=== PATIENT | female | born 1965 | race Caucasian/White ===

== ENCOUNTER 2018-06-24 13:06 | Emergency (ER) | payer OTHER, SELFPAY ==
[2018-06-24 13:07] VITALS: BP 119/71; PULSE 75; RESP 18; TEMP 36.6; O2SAT 99; BMI 35.4
[2018-06-24 13:26] VITALS: BP 125/80; PULSE 80; RESP 14; O2SAT 98
[2018-06-24] MEDS: Triamcinolone Acetonide 40 MG/ML Vial IM (13:57)
[2018-06-24 14:01] VITALS: BP 120/70; PULSE 75; RESP 14; O2SAT 99
[2018-06-24 14:06] LABS: Bedside Glucose 77 mg/dL (70-110)
--- NOTE | 2018-06-24 14:11 | ED.DCSUM_ITS ---
- ER Visit Summary Date of Service: 06/24/18 Chief Complaint: [Sinus infection] History of Present Illness: The patient is a 52 F [who presents the emergency department with a sinus infection. She has been having a headache and ear pressure for the last 2 weeks. She developed facial pain white thick nasal drainage. She was seen in urgent care 2 days ago and given Cipro and eardrops for an ear infection in the right and amoxicillin for a sinus infection but feels worse. She is borderline diabetic and says is poorly controlled.] Physical Examination: [] Vitals reviewed WN WD NAD PERRL EOMI MMM Tenderness to palpation over the bilateral maxillary sinuses, swelling and erythema of the nasal turbinates bilaterally Erythema and dullness of the right TM there is partial occlusion of the TM with soft cerumen NECK supple and nontender, no masses RRR no murmur rub or gallop, no peripheral edema, symmetric radial pulses CTAB no respiratory distress ABDOMEN is soft and nontender, normal bowel sounds, no distension, no rebound or guarding SKIN is warm and dry no rashes Alert and Oriented x3, CN II-XII in tact, no motor or sensory deficits, gait normal No lymphadenopathy Test Results: [] Emergency Department Course and Treatment: [Blood sugar was checked and was 77. Patient was given a shot of Kenalog. She will be sent home with Zyrtec Flonase and doxycycline. She will stop the Cipro but then you the amoxicillin.] Treatment Plan: [] Disposition: [Discharge] Impression: [sinus infection] This note was generated with [employer] dictation software. It may contain incorrect words, spelling, and punctuation that were not noted in review of the chart prior to signing ED Disposition - Plan for ED Patient: Chief Complaint: General Illness Referrals: Jm Johansen DO [Primary Care Provider] -
--- NOTE | 2018-06-24 14:13 | DCINST.ED_ITS ---
ED Disposition - Plan for ED Patient: Chief Complaint: General Illness Instructions: Acute Sinusitis Prescriptions: Cetirizine HCl [Zyrtec] 10 mg PO DAILY #14 tablet Doxycycline Hyclate 100 mg PO BID #20 tablet Fluticasone 0.05% [Flonase Nasal [place]] 1 spray NASAL BID #1 bottle Referrals: Jm Johansen DO [Primary Care Provider] - 3-5 Days
== END 2018-06-24 14:18 | disposition home or self-care (01) ==
LOC: ED 13:53
PROVIDERS: Emergency Provider Emergency Medicine; Family Provider Student in an Organized Health Care Education/Training Program; PCP Student in an Organized Health Care Education/Training Program
DX: J32.9 Chronic sinusitis, unspecified (principal); I10 Essential (primary) hypertension; R73.03 Prediabetes; Z86.39 Personal history of other endocrine, nutritional and metabolic disease; Z87.891 Personal history of nicotine dependence; Z79.899 Other long term (current) drug therapy
CPT/HCPCS: 82962; 96372; 99283

== ENCOUNTER 2023-04-18 17:54 | Inpatient (IN) | payer OTHER, SELFPAY ==
[2023-04-18 17:54] VITALS: BP 108/66; PULSE 76; RESP 17; TEMP 37.1; O2SAT 97; BMI 30.4
--- NOTE | 2023-04-18 18:20 | RAD_ITS ---
STUDY: X-RAY - RIGHT ANKLE REASON FOR EXAM: Female, 57 years old. Pain and deformity. TECHNIQUE: 2 view(s) of the ankle. COMPARISON: None. FINDINGS: Comminuted fracture of the distal fibula with dorsal angulation of the distal fracture fragment. There is fracture of the medial tibia and plafond which is displaced posteriorly to the remainder of the tibia. There is dorsal dislocation of the ankle. Normal visualized talus and calcaneus. The visualized subtalar, talonavicular, calcaneocuboid and tarsal articulations are normal. The soft tissue structures are unremarkable. RAD/Ankle 2 Views IMPRESSION: Fracture dislocation of the right ankle. Electronically Signed: Trino Salazar DO at 18:41 EDT ,
--- NOTE | 2023-04-18 18:20 | RAD_ITS ---
STUDY: X-RAY - RIGHT TIBIA AND FIBULA REASON FOR EXAM: Female, 57 years old. Trauma. Pain and deformity. TECHNIQUE: AP and lateral view(s) of the tibia and fibula were obtained. COMPARISON: Right ankle, April 18, 2022. FINDINGS: There is a fracture of the medial aspect of the distal tibia with posterior displacement. There is a comminuted fracture of the distal radial diametaphysis with dorsal angulation and associated posterior dislocation of the ankle. Additionally there is a minimally displaced fracture of the proximal fibular diaphysis. The knee appears intact. The soft tissue structures are unremarkable. RAD/Tibia & Fibula 2 Views IMPRESSION: 1. Fracture dislocation of the ankle. 2. Minimally displaced fracture of the proximal fibular shaft. Electronically Signed: Trino Salazar DO at 18:42 EDT ,
[2023-04-18] MEDS: HYDROmorphone 1 MG/ML Syringe IV (18:26)
[2023-04-18] MEDS: Ondansetron 4 MG/2 ML Vial IV (18:26)
--- NOTE | 2023-04-18 19:20 | RAD_ITS ---
STUDY: X-RAY - RIGHT ANKLE REASON FOR EXAM: Female, 57 years old. Reduction. TECHNIQUE: AP and lateral view(s) of the ankle. COMPARISON: Right ankle, April 18, 2023 (1817 hours). FINDINGS: Visualization is limited due to a surrounding semiopaque splint. There is protestant of the ankle when compared to the prior study. The tibial fracture appears in normal alignment. There is improved alignment of the distal fibular fracture. RAD/Ankle min 3 Views IMPRESSION: Successful reduction of the right ankle fracture/dislocation with semiopaque ligament. Electronically Signed: Trino Salazar DO at 19:49 EDT ,
--- NOTE | 2023-04-18 19:50 | EX.ED.DYSGE1 ---
HPI <KAI Martinez - Last Filed: 04/18/23 20:16> History of Present Illness Chief Complaint: Lower Extremity Injury Narrative Narrative: 57-year-old female with history of anxiety, depression, high blood pressure, diabetes presents to the emergency department for injury to the right ankle, right lower extremity after jumping off of a truck bed. Patient came in with deformity by EMS. Patient had extreme pain to the ankle with posterior dislocation. She denies any head or neck injury. Patient is present with her . PFS <KAI Martinez - Last Filed: 04/18/23 20:16> [facility] Medical History (Updated 04/19/23 @ 00:[address] Mehul Ceballos DO) Cataract Diabetes Former tobacco use Hyperlipidemia Hypertension Obesity PTSD (post-traumatic stress disorder) Tachyarrhythmia Home Medications atenolol 50 mg tablet 50 mg PO DAILY blood pressure 12/20/15 [History Last Taken 04/18/23] ergocalciferol (vitamin D2) 1,250 mcg (50,000 unit) capsule (Vitamin D2) 50,000 unit PO SA supplement 12/20/15 [History Last Taken 04/17/23] potassium chloride 20 mEq tablet,extended release(part/cryst) (Klor-Con M) 20 meq PO BID supplement 12/20/15 [History Last Taken 04/18/23] venlafaxine 150 mg capsule,extended release 24 hr 225 mg PO DAILY depression 12/20/15 [History Last Taken 04/18/23] fluticasone propionate 50 mcg/actuation nasal spray,suspension 1 spray BID ##1 06/24/18 [Rx Last Taken 04/18/23] aripiprazole 2 mg tablet 2 mg PO DAILY mood 04/18/23 [History Last Taken 04/18/23] citalopram 20 mg tablet 20 mg PO QHS depression 04/18/23 [History Last Taken 04/17/23] diazepam 10 mg tablet 10 mg PO DAILY PTSD 04/18/23 [History Last Taken 04/18/23] furosemide 20 mg tablet 20 mg PO BID diuretic 04/18/23 [History Last Taken 04/18/23] gabapentin 300 mg capsule 300 mg PO QHS arthritis 04/18/23 [History Last Taken 04/17/23] metformin 500 mg tablet 500 mg PO BID diabetes 04/18/23 [History Last Taken 04/18/23] Allergy/AdvReac Type Severity Reaction Status Date / Time Sulfa (Sulfonamide Allergy Unknown Verified 04/18/23 17:55 Antibiotics) Family History (Updated 04/18/23 @ 23:[address] Odalys Page MD) Mother Diabetes Hypertension Sister Diabetes Surgical History (Updated 04/18/23 @ 23:[address] Odalys Page MD) History of History of cardiac radiofrequency ablation History of cholecystectomy History of right salpingo-oophorectomy S/P cataract extraction Social History (Updated 04/18/23 @ 23:[address] Odalys Page MD) household members: spouse Smoking Status: Former smoker how long ago did patient quit smoking: Quit 1991, smoked 2 ppd since teen until quit. alcohol intake: never substance use type: does not use ROS <KAI Martinez - Last Filed: 04/18/23 20:16> ROS ED ROS Narrative Constitutional: Negative for fever, chills, weight loss, weakness Eyes: Negative for vision loss, vision change, double vision ENT: Negative for any sore throat, ear pain, congestion Cardiovascular: Negative for any chest pain, tightness, palpitations Respiratory: Negative for any cough, sputum production, hemoptysis, dyspnea, dyspnea on exertion, orthopnea Gastrointestinal: Negative for any abdominal pain, nausea, vomiting, diarrhea, constipation, blood in stool, blood in vomit : Negative for any urinary frequency, dysuria, retention, blood in urine Muscle skeletal: Negative for any muscle joint pain, stiffness, myalgias, arthralgias, neck pain, back pain. Positive right lower ankle pain, right ankle deformity Neurological: Negative for any headache, syncope, numbness or tingling, dizziness Skin: Negative for any rashes, lumps, itching, abrasions, lacerations Psychiatric: Negative for any depression, anxiety, stress, suicidal ideation, homicidal ideation Hematologic: Negative for any easy bruising, excessive bruising, easy bleeding Allergies: Negative for any eczema, hives, rash EXAM <KAI Martinez - Last Filed: 04/18/23 20:16> Physical Exam Narrative Exam Narrative: Vital signs reviewed. HEET: Head normocephalic atraumatic, TMs clear bilaterally. Posterior pharynx is clear, moist mucous membranes. Nares clear bilaterally. Pupils are equal round reactive to light Neck: Supple with no lymphadenopathy or tenderness. No signs of meningismus, negative jolt sign. Cardiac: Regular rate and rhythm no murmurs gallops or rubs, equal peripheral pulses bilaterally. Respiratory: Lungs clear to auscultation bilaterally. No chest tenderness. Abdomen: Soft, nontender, nondistended. No abdominal bruit or pulsatile masses. No hepatosplenomegaly Extremities: Patient has obvious posterior deformity to the right ankle, patient does have a pulse felt with Doppler. Upon initial x-rays, the attending and I were able to reduce this and placed in a short posterior splint with a sugar-tong. Patient had pain medicine prior, as well as after. Patient's neurovascular intact. Neuro: Cranial nerves II through XII intact, no focal neurological deficits. Skin: Clean dry and intact with no rash, purpura, petechiae, vesicles or pustules. Backs/flank: No CVA tenderness, no midline spinal tenderness, no deformity. Psych: Normal mood and affect. No SI, HI or acute psychosis. Const Vital Signs: 04/18/23 17:54 04/18/23 20:25 04/18/23 20:28 Temperature 98.7 F 97.9 F Temperature Source Temporal Oral Pulse Rate 76 76 76 Respiratory Rate 17 16 15 Blood Pressure 108/66 99/61 101/61 Blood Pressure Mean 80 73 74 Pulse Ox 97 93 91 Oxygen Delivery Method Room Air Room Air Room Air Positive well nourished and well developed General Appearance ED: well developed <Dr. Mehul Ceballos DO - Last Filed: 04/19/23 00:53> Physical Exam Const Vital Signs: 04/18/23 17:54 04/18/23 20:25 04/18/23 20:28 Temperature 98.7 F 97.9 F Temperature Source Temporal Oral Pulse Rate 76 76 76 Respiratory Rate 17 16 15 Blood Pressure 108/66 99/61 101/61 Blood Pressure Mean 80 73 74 Pulse Ox 97 93 91 Oxygen Delivery Method Room Air Room Air Room Air MDM <KAI Martinez - Last Filed: 04/18/23 20:16> MDM Lab Data Labs: Laboratory Results - last 24 hr 04/18/23 04/18/23 04/18/23 20:00 20:00 20:00 WBC 13.7 H RBC 3.93 L Hgb 11.5 L Hct 36.9 L MCV 93.9 MCH 29.3 MCHC 31.2 L RDW Std Deviation 45.8 H RDW Coeff of Kristi 13.2 Plt Count 359 MPV 11.1 Immature Gran % (Auto) 0.400 Neut % (Auto) 74.7 H Lymph % (Auto) 16.7 L Dade % (Auto) 6.4 Eos % (Auto) 1.2 Baso % (Auto) 0.6 Absolute Neuts (auto) 10.2 H Absolute Lymphs (auto) 2.28 Nucleated RBC % 0 PT 13.0 INR 1.0 APTT 27.9 Sodium 141 Potassium 3.7 Chloride 103 Carbon Dioxide 31.0 Anion Gap 7 BUN 12 Creatinine 0.98 Estim Creat Clear Calc 51.76 Est GFR (MDRD) Af Amer 75 Est GFR (MDRD) Non-Af 62 BUN/Creatinine Ratio 12.3 Glucose 106 Hemoglobin A1c Calcium 9.3 Phosphorus Magnesium Blood Type Antibody Screen 04/18/23 04/18/23 04/18/23 20:00 20:00 20:00 WBC RBC Hgb Hct MCV MCH MCHC RDW Std Deviation RDW Coeff of Kristi Plt Count MPV Immature Gran % (Auto) Neut % (Auto) Lymph % (Auto) Dade % (Auto) Eos % (Auto) Baso % (Auto) Absolute Neuts (auto) Absolute Lymphs (auto) Nucleated RBC % PT INR APTT Sodium Potassium Chloride Carbon Dioxide Anion Gap BUN Creatinine Estim Creat Clear Calc Est GFR (MDRD) Af Amer Est GFR (MDRD) Non-Af BUN/Creatinine Ratio Glucose Hemoglobin A1c 6.1 H Calcium Phosphorus 3.9 Magnesium 1.8 Blood Type A POSITIVE Antibody Screen NEGATIVE Radiography Diagnostic Testing: Clinical Impression(s) from Imaging Studies Ankle X-Ray 04/18/23 18:20 IMPRESSION: Fracture dislocation of the right ankle. Electronically Signed: Trino Salazar DO at 18:41 EDT Reading Location ID and State: [address] [place] [address] Tel [phone], Service support , Tibia/Fibula X-Ray 04/18/23 18:20 IMPRESSION: 1. Fracture dislocation of the ankle. 2. Minimally displaced fracture of the proximal fibular shaft. Electronically Signed: Trino Salazar DO at 18:42 EDT , Ankle X-Ray 04/18/23 19:20 IMPRESSION: Successful reduction of the right ankle fracture/dislocation with semiopaque ligament. Electronically Signed: Trino Salazar DO at 19:49 EDT , Lower Extremity CT 04/18/23 19:58 IMPRESSION: Trimalleolar fracture in grossly satisfactory alignment. There is no evidence of ankle dislocation. Electronically Signed: Trino Salazar DO at 21:13 EDT , Treatment and Re-Evaluation :: All radiologic examinations were read, reviewed by the emergency department attending. From these reads, a plan of care will be put in place. Patient arrives in mild to moderate distress secondary to severe pain to the right ankle. Patient arrives after a fall from a truck bed, deformity of the right ankle, right lower leg pain. Patient did receive an ankle x-ray which showed a fracture dislocation of the right ankle. Tibia-fibula fracture dislocation of the ankle as well as a minimally displaced fracture proximal fibular shaft. Patient was given pain medicine, we then were able to reduce the fracture, placed in a short leg splint with sugar-tong. Repeat x-rays Successful reduction of the right ankle fracture/location with semiopaque ligament. Patient was redosed with pain medicine. On reassessment, patient was still in significant amount of pain. Patient lives in a duplex with multiple steps, patient and her feel that she cannot care for self at home. She will need to be admitted to the hospital. Orthopedic Flip Ruiz was consulted, a CT scan will be ordered for the patient, the patient be admitted for pain control as well as PT OT. Possible surgery during hospital stay. I spoke with the hospitalist who will admit this patient. <Dr. Mehul Ceballos, DO - Last Filed: 04/19/23 00:53> [facility] Narrative Medical decision making narrative: Attending note: Patient seen and evaluated with communications attendant. I perform my own [id number] evaluation. I agree with the plan of work-up. Brought in by EMS concerning right lower extremity fracture deformity after stepping off truck bed. Denies head injuries. She denies being on blood thinners. History hypertension diabetes. She follows [facility] orthopedics here recently with no surgical intervention due to osteoarthritis has been no injections. Status post fentanyl by EMS. Examination bedside with communications attendant, has deformity of the ankle skin was intact. She is uncomfortable her GCS is 15 no signs of head trauma. Bedside evaluation of tib-fib and ankle failed concerns for proximal fibular fracture or trimalleolar fracture of the ankle with posterior dislocation interpreted by myself. Patient was given Dilaudid this was reduced and splinted by myself with assistance from communications attendant. Post films good alignment and reduction. Spoke with on-call orthopedist Dr. Ruiz, requests CT scan, he states surgery would not be immediately. However patient lives home with 2 flights and unable to nonweightbear, therefore discussed with hospitalist for admission. Surgical planning will be per orthopedic team. Procedure note: Fracture reduction. Verbal consent performed bedside. 1 mg of IV Dilaudid was given, gentle traction of the foot rotation medially with clinically improved alignment and reduction. Nylon sleeve was placed, Kerlix padding with extra padding at the ankle was placed, a 5 inch plaster posterior splint with 3 inch stirrups were placed to the ankle. Anderson wrap secured. Neurovascularly intact post splinting. Postop films reveal good alignment and reduction. CT scan right lower extremity was reviewed and interpreted by radiology trimalleolar fracture with good reduction. Lab Data Attestation: I reviewed the patient's lab results. Labs: Laboratory Results - last 24 hr 04/18/23 04/18/23 04/18/23 20:00 20:00 20:00 WBC 13.7 H RBC 3.93 L Hgb 11.5 L Hct 36.9 L MCV 93.9 MCH 29.3 MCHC 31.2 L RDW Std Deviation 45.8 H RDW Coeff of Kristi 13.2 Plt Count 359 MPV 11.1 Immature Gran % (Auto) 0.400 Neut % (Auto) 74.7 H Lymph % (Auto) 16.7 L Dade % (Auto) 6.4 Eos % (Auto) 1.2 Baso % (Auto) 0.6 Absolute Neuts (auto) 10.2 H Absolute Lymphs (auto) 2.28 Nucleated RBC % 0 PT 13.0 INR 1.0 APTT 27.9 Sodium 141 Potassium 3.7 Chloride 103 Carbon Dioxide 31.0 Anion Gap 7 BUN 12 Creatinine 0.98 Estim Creat Clear Calc 51.76 Est GFR (MDRD) Af Amer 75 Est GFR (MDRD) Non-Af 62 BUN/Creatinine Ratio 12.3 Glucose 106 Hemoglobin A1c Calcium 9.3 Phosphorus Magnesium Blood Type Antibody Screen 04/18/23 04/18/23 04/18/23 20:00 20:00 20:00 WBC RBC Hgb Hct MCV MCH MCHC RDW Std Deviation RDW Coeff of Kristi Plt Count MPV Immature Gran % (Auto) Neut % (Auto) Lymph % (Auto) Dade % (Auto) Eos % (Auto) Baso % (Auto) Absolute Neuts (auto) Absolute Lymphs (auto) Nucleated RBC % PT INR APTT Sodium Potassium Chloride Carbon Dioxide Anion Gap BUN Creatinine Estim Creat Clear Calc Est GFR (MDRD) Af Amer Est GFR (MDRD) Non-Af BUN/Creatinine Ratio Glucose Hemoglobin A1c 6.1 H Calcium Phosphorus 3.9 Magnesium 1.8 Blood Type A POSITIVE Antibody Screen NEGATIVE Radiography Diagnostic Testing: Clinical Impression(s) from Imaging Studies Ankle X-Ray 04/18/23 18:20 IMPRESSION: Fracture dislocation of the right ankle. Electronically Signed: Trino Salazar DO at 18:41 EDT Reading Location ID and State: [employer] Tel [phone], Service support , Tibia/Fibula X-Ray 04/18/23 18:20 IMPRESSION: 1. Fracture dislocation of the ankle. 2. Minimally displaced fracture of the proximal fibular shaft. Electronically Signed: Trino Salazar DO at 18:42 EDT Reading Location ID and State: [employer] Tel [phone], Service support , Ankle X-Ray 04/18/23 19:20 IMPRESSION: Successful reduction of the right ankle fracture/dislocation with semiopaque ligament. Electronically Signed: Trino Salazar DO at 19:49 EDT , Lower Extremity CT 04/18/23 19:58 IMPRESSION: Trimalleolar fracture in grossly satisfactory alignment. There is no evidence of ankle dislocation. Electronically Signed: Trino Salazar DO at 21:13 EDT , Discharge Plan Dx/Rx/DC Orders Clinical Impression: Fall, Trimalleolar fracture of ankle, closed, Closed fracture of proximal end of fibula Disposition Disposition: Acute Care Hospital [facility] Discharge Date/Time: 04/18/23 21:53
--- NOTE | 2023-04-18 19:58 | CT_ITS ---
STUDY: CT RIGHT ANKLE WITHOUT CONTRAST REASON FOR EXAM: Female, 57 years old. Fracture. RADIATION DOSAGE (If Supplied By Facility): CTDIvol = ( 15.35 ) mGy, DLP = ( 595.54 ) mGycm TECHNIQUE: Thin section transaxial imaging of the ankle was obtained, with sagittal and coronal reconstructed images. Individualized dose optimization techniques were used for this CT. COMPARISON: Right ankle, April 18, 2023. FINDINGS: There is a fracture of the distal radial diametaphysis which is in normal alignment. Is a posterior malleolar fracture of the tibia which is minimally displaced. Fracture line extends into the posterior plafond and knee across the medial malleolus without displacement. Normal tibiotalar articulation and talar dome. Normal talus, calcaneus, navicular and cuboid tarsal bones. Normal subtalar, talonavicular and calcaneocuboid articulations. Normal navicular-cuneiform, cuneiform tarsal bones and intercuneiform articulations. Normal tarsometatarsal articulations and visualized metatarsi. The soft tissue structures are grossly normal. Semiopaque splint is seen surrounding the ankle and foot. CT/Extremity Lower without Contra IMPRESSION: Trimalleolar fracture in grossly satisfactory alignment. There is no evidence of ankle dislocation. Electronically Signed: Trino Salazar DO at 21:13 EDT Reading Location ID and State: [address] [facility] Tel [phone], Service support ,
--- NOTE | 2023-04-18 20:09 | PCM.HP.STD ---
HPI - General General Date of Admission: 04/18/23 Date of Service: 04/18/23 Chief Complaint: Mechanical fall, ankle pain. HPI Narrative The patient is a 57 y/o F w/ PMHx: Allergic rhinitis, Diabetes mellitus type II, HTN, HLD, Hx tobacco use, Anxiety and Depression/PTSD, Obesity, Cardiac tachyarrhythmia of unclear type status post RFA, Former tobacco use who presents to the [facility] ED on 04/18/23 with history of unfortunate mechanical fall while attempting to jump off the bed of a truck unfortunately landing awkwardly on her ankle and falling with immediate onset severe pain 10 of 10, sharp and obvious deformity prompting EMS call. Work-up in the ED included plain film of the right ankle with a fracture dislocation of the right ankle, plain film of the right tibia and fibula with a fracture dislocation of the ankle with minimally displaced fracture the proximal fibular shaft, plain film of the right ankle following reduction with successful reduction of the right ankle fracture/dislocation with semiopaque ligament. ED discussed case with orthopedic surgery who noted intention for further imaging and further delineation of OR needs based on these findings and their evaluation. In the ED patient ministered 1 L normal saline, Zofran 4 mg IV x3, morphine 4 mg IV x2 and Dilaudid 1 mg IV x1. In the ED patient placed in a splint temporarily per ED physicians. [facility] Medical History (Updated 04/18/23 @ 23:[address] Odalys Page MD) Cataract Diabetes Former tobacco use Hyperlipidemia Hypertension Obesity PTSD (post-traumatic stress disorder) Tachyarrhythmia Home Medications atenolol 50 mg tablet 50 mg PO DAILY blood pressure 12/20/15 [History Last Taken 04/18/23] ergocalciferol (vitamin D2) 1,250 mcg (50,000 unit) capsule (Vitamin D2) 50,000 unit PO SA supplement 12/20/15 [History Last Taken 04/17/23] potassium chloride 20 mEq tablet,extended release(part/cryst) (Klor-Con M) 20 meq PO BID supplement 12/20/15 [History Last Taken 04/18/23] venlafaxine 150 mg capsule,extended release 24 hr 225 mg PO DAILY depression 12/20/15 [History Last Taken 04/18/23] fluticasone propionate 50 mcg/actuation nasal spray,suspension 1 spray BID ##1 07/27/18 [Rx Last Taken 04/18/23] aripiprazole 2 mg tablet 2 mg PO DAILY mood 04/18/23 [History Last Taken 04/18/23] citalopram 20 mg tablet 20 mg PO QHS depression 04/18/23 [History Last Taken 04/17/23] diazepam 10 mg tablet 10 mg PO DAILY PTSD 04/18/23 [History Last Taken 04/18/23] furosemide 20 mg tablet 20 mg PO BID diuretic 04/18/23 [History Last Taken 04/18/23] gabapentin 300 mg capsule 300 mg PO QHS arthritis 04/18/23 [History Last Taken 04/17/23] metformin 500 mg tablet 500 mg PO BID diabetes 04/18/23 [History Last Taken 04/18/23] Allergy/AdvReac Type Severity Reaction Status Date / Time Sulfa (Sulfonamide Allergy Unknown Verified 04/18/23 17:55 Antibiotics) Family History (Updated 04/18/23 @ 23:[address] Odalys Page MD) Mother Diabetes Hypertension Sister Diabetes other (Patient denies any marked paternal family history including HD, DM, CA.) Surgical History (Updated 04/18/23 @ 23:[address] Odalys Page MD) History of History of cardiac radiofrequency ablation History of cholecystectomy History of right salpingo-oophorectomy S/P cataract extraction Social History (Updated 04/18/23 @ 23:[address] Odalys Page MD) household members: spouse Smoking Status: Former smoker how long ago did patient quit smoking: Quit 1991, smoked 2 ppd since teen until quit. alcohol intake: never substance use type: does not use ROS ROS Narrative Admission Review of Systems: CONSTITUTIONAL: No weight loss, fever, chills, + weakness or fatigue. HEENT: Eyes: No visual loss, blurred vision, double vision or yellow sclerae. Ears, Nose, Throat: No hearing loss, sneezing, congestion, runny nose or sore throat. SKIN: No rash or itching, lesions, wounds. CARDIOVASCULAR: No chest pain, chest pressure or chest discomfort, palpitations, edema, orthopnea, syncopal events. RESPIRATORY: No shortness of breath, cough or sputum, wheezing, hemoptysis. GASTROINTESTINAL: No anorexia, nausea, vomiting or diarrhea, abdominal pain, melena, BRBPR. GENITOURINARY: No dysuria, frequency, urgency or retention. NEUROLOGICAL: No headache, dizziness, syncope, paralysis, ataxia, numbness or tingling in the extremities, focal weakness, change in bowel or bladder control, seizure. MUSCULOSKELETAL: + muscle, back pain, joint pain or stiffness. HEMATOLOGIC: + anemia, bleeding or bruising. LYMPHATICS: No enlarged nodes. No history of splenectomy. PSYCHIATRIC: + history of depression or anxiety. ENDOCRINOLOGIC: No reports of sweating, cold or heat intolerance. No polyuria or polydipsia. ALLERGIES: + history of rhinitis. Vital Signs Vital Signs Vital Signs: 04/18/23 17:54 Temperature 98.7 F Temperature Source Temporal Pulse Rate 76 Respiratory Rate 17 Blood Pressure 108/66 Blood Pressure Mean 80 Pulse Ox 97 Oxygen Delivery Method Room Air Weight Weight: 171 lb 15.369 oz Body Mass Index (BMI) 30.4 Physical Exam Narrative Physical Examination: General: Awake, alert, oriented x 3 and cooperative, seated upright in the ED bed, fatigued appearing. Skin: Normal color, normal turgor, no icterus, no cyanosis, unable to view skin of the right lower extremity as it has been placed in a splint per ED physicians. HEENT: AT/NC, EOMI, PERRLA, dry MM, no carotid bruits or JVD noted. Lungs: Mildly diminished, greater bases, proper effort, no rales, ronchi or wheezing. Heart: Currently regular rate and rhythm; no gallop, rub audible. Abdomen: Soft, obese, NTTP, ND, normal BS, no HSM. Extremities: No cyanosis, no clubbing, status post mechanical fall with right lower extremity ankle injury, currently placed in splint and wrapped with elevation per ED physician, able to move toes. Neurological: Patient awake, alert, oriented as noted, cognitive function intact; pupils equally reactive to light and accommodation, cranial nerves II-XII grossly normal, moving all 4 extremities except extremely limited right lower extremity given fall with fracture currently splinted and elevated, strength accordingly moderately to severely globally decreased. Psychiatric: Affect appears flat, fatigued, recent sedate of medications, no acute evidence of depressive or anxiety feelings but does have underlying history. Results Lab / Micro Data Result Diagrams: 04/18/23 20:00 04/18/23 20:00 Radiology Impression Ankle X-Ray 04/18/23 18:20 IMPRESSION: Fracture dislocation of the right ankle. Electronically Signed: Trino Salazar at 18:41 EDT , Tibia/Fibula X-Ray 04/18/23 18:20 IMPRESSION: 1. Fracture dislocation of the ankle. 2. Minimally displaced fracture of the proximal fibular shaft. Electronically Signed: Trino MartinDO at 18:42 EDT , Ankle X-Ray 04/18/23 19:20 IMPRESSION: Successful reduction of the right ankle fracture/dislocation with semiopaque ligament. Electronically Signed: Trino SalazarDO at 19:49 EDT Reading Location ID and State: [facility] / [place] Tel [phone], Service support , Assessment & Plan Assessment/Plan (1) Trimalleolar fracture of ankle, closed: PLAN: Plan The patient is a 57 y/o F w/ PMHx: Allergic rhinitis, Diabetes mellitus type II, HTN, HLD, Hx tobacco use, Anxiety and Depression/PTSD, Obesity, Cardiac tachyarrhythmia of unclear type status post RFA, Former tobacco use who presents to the [facility] ED on 04/18/23 with history of unfortunate mechanical fall while attempting to jump off the bed of a truck unfortunately landing awkwardly on her ankle and falling with immediate onset severe pain 10 of 10, sharp and obvious deformity prompting EMS call. #1. Mechanical fall with right ankle trimalleolar fracture: ED presentation with plain films right ankle with a fracture dislocation of the right ankle, plain film of the right tibia and fibula with a fracture dislocation of the ankle with minimally displaced fracture the proximal fibular shaft, plain film of the right ankle following reduction with successful reduction of the right ankle fracture/dislocation with semiopaque ligament. Will admit to medical surgical floor, will continue orthopedic surgery consultation, maintain nonweightbearing status, elevation, continue judicious hydration with n.p.o. status after midnight pending orthopedic surgery evaluation in case of planned OR, pending further imaging per ED report specifically CT per orthopedic surgery request to further elucidate plan, we will have as needed oral and IV pain regimen as well as as needed antiemetic regimen. #2. Diabetes mellitus type II with chronic neuropathy: Hold oral home regimen, ADA diet, accu checks w/ ISS, continue patient on gabapentin regimen. #3. Cardiac tachyarrhythmia, unclear specific type: Patient does report status post RFA previously and reports it was because her heart rate was elevated but cannot give any other information aside this and denies having been anticoagulated. #4. Anxiety and depression/PTSD: We will continue patient home citalopram, aripiprazole, diazepam, venlafaxine home regimen. #5. Hypertension: Continue home regimen including Lasix, atenolol, PRN hydralazine. #6. Hyperlipidemia: Not on regimen, defer to outpatient. #7. Allergic rhinitis: We will continue patient home fluticasone regimen. #8. Former tobacco use: Encourage continued tobacco cessation. #9. Obesity: Weight loss and lifestyle changes encouraged. #10. DVT prophylaxis: SCDs pending Orthopedic surgery evaluation in case of OR. #12. CODE STATUS: Patient does not have healthcare power immigration attorney or living will in place. would be her decision-maker if she was unable. Full code. Admission Evaluation Time spent evaluating chart, patient history, patient evaluation, care planning and discussion with specialists: 60 minutes. Charges/Coding Visit Charges Inpatient E&M: 05070 Init Hosp L2
[2023-04-18 20:13] LABS: Absolute Lymphocyte Count 2.28 X10^3/uL (0.83-4.51); Absolute Neutrophil Count 10.2 X10^3/uL (2.0-7.7); Basophil# 0.08 X10^3/uL; Basophil% 0.6 % (0-1); Eosinophil# 0.17 X10^3/uL; Eosinophils% 1.2 % (0-5); Hematocrit 36.9 % (37-47); Hemoglobin 11.5 g/dL (12.0-15.0); Lymphocyte # 2.28 X10^3/ul (0.83-4.51); Lymphocyte % 16.7 % (19-41); Mean Corp Hgb Conc 31.2 g/dL (32-36); Mean Corpuscular Hgb 29.3 pg (27.0-32.0); Mean Corpuscular Volume 93.9 fL (81-99); Mean Platelet Vol. 11.1 fl (6.2-12.0); Monocyte# 0.87 X10^3/uL; Monocyte% 6.4 % (0-10); NRBC Flagged by Analyzer 0 % (0-5); Neutrophil # 10.24 X10^3/uL (2.7-7.7); Neutrophil % 74.7 % (47-70); Platelet Count 359 K/mm3 (150-450); RBC Distribution Width CV 13.2 % (11.6-14.6); RBC Distribution Width SD 45.8 fl (35.1-43.9); Red Blood Count 3.93 M/mm3 (4.2-5.4); White Blood Count 13.7 K/mm3 (4.4-11.0)
[2023-04-18 20:25] VITALS: BP 99/61; PULSE 76; RESP 16; O2SAT 93
[2023-04-18 20:25] LABS: Partial Thromboplast Time 27.9 Seconds (24.1-36.2)
[2023-04-18 20:28] VITALS: BP 101/61; PULSE 76; RESP 15; TEMP 36.6; O2SAT 91
[2023-04-18 20:31] LABS: Anion Gap 7 (5-15); BUN 12 mg/dL (7-18); BUN/Creat Ratio 12.3 RATIO (10-20); Calcium,Total 9.3 mg/dL (8.5-10.1); Chloride 103 mmol/L (98-107); Creatinine, Serum 0.98 mg/dL (0.55-1.02); EST Glomerular Filtration Rate 62 mL/min (>60); Est Glom Filt Rate - Afr Amer 75 mL/min (>60); Estimated Creatinine Clearance 51.76 ml/min; Glucose 106 mg/dL (74-106); Potassium 3.7 mmol/L (3.5-5.1); Sodium Level 141 mmol/L (136-145)
[2023-04-18] MEDS: 0.9% Normal Saline 1,000 ML 999 ML IV (20:33)
[2023-04-18 20:53] LABS: Hemoglobin A1c 6.1 % (3.8-5.6)
[2023-04-18 21:06] LABS: Magnesium 1.8 mg/dL (1.6-2.6); Phosphorus 3.9 mg/dL (2.5-4.9)
[2023-04-18 21:56] VITALS: BMI 30.7
[2023-04-18 22:26] VITALS: BP 123/73; PULSE 81; RESP 14; TEMP 36.6; O2SAT 100
[2023-04-18 22:30] LABS: Bedside Glucose 90 mg/dL (74-106)
[2023-04-18] MEDS: Acetaminophen 325 MG Tablet 650 MG PO (22:46)
[2023-04-18] MEDS: Potassium Chloride Oral Tablet 20 MEQ PO (22:47)
[2023-04-18] MEDS: oxyCODONE 5 MG Tablet PO (22:47)
[2023-04-18] MEDS: 0.9% Normal Saline 1,000 ML 100 ML IV (22:52)
[2023-04-19 04:30] VITALS: BP 116/61; PULSE 77; RESP 16; TEMP 36.6; O2SAT 98
[2023-04-19] MEDS: HYDROmorphone 0.5 MG/0.5 ML SYRINGE IV (05:33)
[2023-04-19 06:00] VITALS: BMI 30.7
[2023-04-19 06:11] LABS: Absolute Lymphocyte Count 3.32 X10^3/uL (0.83-4.51); Absolute Neutrophil Count 6.1 X10^3/uL (2.0-7.7); Basophil# 0.06 X10^3/uL; Basophil% 0.6 % (0-1); Eosinophil# 0.18 X10^3/uL; Eosinophils% 1.7 % (0-5); Hematocrit 35.8 % (37-47); Hemoglobin 10.7 g/dL (12.0-15.0); Lymphocyte # 3.32 X10^3/ul (0.83-4.51); Lymphocyte % 31.6 % (19-41); Mean Corp Hgb Conc 29.9 g/dL (32-36); Mean Corpuscular Hgb 28.8 pg (27.0-32.0); Mean Corpuscular Volume 96.5 fL (81-99); Mean Platelet Vol. 11.2 fl (6.2-12.0); Monocyte# 0.81 X10^3/uL; Monocyte% 7.7 % (0-10); NRBC Flagged by Analyzer 0 % (0-5); Neutrophil # 6.11 X10^3/uL (2.7-7.7); Neutrophil % 58.2 % (47-70); Platelet Count 333 K/mm3 (150-450); RBC Distribution Width CV 13.5 % (11.6-14.6); RBC Distribution Width SD 47.7 fl (35.1-43.9); Red Blood Count 3.71 M/mm3 (4.2-5.4); White Blood Count 10.5 K/mm3 (4.4-11.0)
[2023-04-19 06:45] LABS: Bedside Glucose 83 mg/dL (74-106)
[2023-04-19 07:00] LABS: ALB/GLOB Ratio 0.7 RATIO (0.9-2.4); AST(SGOT) 74 U/L (15-37); Alanine Aminotransfer ALT/SGPT 52 U/L (13-56); Albumin, Serum 2.8 g/dL (3.2-5.0); Alkaline Phosphatase 105 U/L (45-117); Anion Gap 4 (5-15); BUN 12 mg/dL (7-18); BUN/Creat Ratio 15.2 RATIO (10-20); Calcium,Total 8.5 mg/dL (8.5-10.1); Chloride 107 mmol/L (98-107); Creatinine, Serum 0.79 mg/dL (0.55-1.02); EST Glomerular Filtration Rate 79 mL/min (>60); Est Glom Filt Rate - Afr Amer 96 mL/min (>60); Estimated Creatinine Clearance 64.21 ml/min; Globulin 4.1 g/dL (2.2-4.2); Glucose 112 mg/dL (74-106); Potassium 3.8 mmol/L (3.5-5.1); Protein, Total 6.9 g/dL (6.4-8.2); Sodium Level 141 mmol/L (136-145)
[2023-04-19 07:15] VITALS: O2SAT 98
[2023-04-19 08:52] LABS: Hemoglobin A1c 6.2 % (3.8-5.6)
[2023-04-19 09:14] VITALS: BP 98/51; PULSE 71; RESP 18; TEMP 36.4; O2SAT 98
[2023-04-19] MEDS: Atenolol 50 MG Tablet PO (09:26)
[2023-04-19] MEDS: Acetaminophen 325 MG Tablet 650 MG PO ×3 (09:26→21:27)
[2023-04-19] MEDS: Senna/Docusate Sodium 1 Tablet 2 TABLET PO (09:26)
[2023-04-19] MEDS: Potassium Chloride Oral Tablet 20 MEQ PO ×2 (09:26→21:28)
[2023-04-19] MEDS: Furosemide 20 MG Tablet PO ×2 (09:27→21:26)
[2023-04-19] MEDS: Fluticasone 0.05% 1 SPRAY NASAL.SRY NASAL (09:29)
[2023-04-19] MEDS: Venlafaxine XR 150 MG Capsule PO (09:30)
[2023-04-19] MEDS: oxyCODONE 5 MG Tablet PO ×3 (09:37→21:27)
--- NOTE | 2023-04-19 10:17 | CASEMGMT ---
BEBA LANGLEY Assessment: Face to Face with pt for initial transition planning/care coordination assessment. BEBA LANGLEY introduced self and role at [facility], pt voices understanding and consents to assessment. Pt is A/O x4 and answers all questions appropriately at this time. Pt sitting up in chair in no distress. Pt worked with OT and BEBA LANGLEY spoke with OT. Care providers, pharmacy, and demographics verified/updated. Admitting Dx: R ankle fx PCP:Eleno Specialists:Jose, psych; Ortho at [facility] Preferred Pharmacy: [facility] Insurance: [employer] Prescription Benefit: yes LNOK: João Thomas, Living Arrangements: Pt lives with in a split level home with 5-6 steps if entering through the garage to get to the kitchen and livingroom and another 5-6 steps to get to the bedrooms and bathroom. Pt reports she was I in ADL's prior to this incident. Pt states her is recovering from a kidney transplant and is unsure of how much he can help her. Transportation: Pt did drive prior to falling. DME/HHC/SNF: Pt has a BGM with sufficient supplies, rollator, walker, shower chair and cane at home. Pt states she could borrow a BSC from her mother. Pt denies hx of HHC or SNF stays. OT does not recommend pt return to her home due to steps post hospitalization. Pt states she has her father who lives in [place] that has a one story home as well as her mother who lives in [place]. She does not know if she will be able to do much for herself as she states her upper body is weak and her right knee is bone on bone. PT to see pt yet. Pt is agreeable to a SNF s/t if recommended to build strength and for safety prior to returning home. She states she does not want to go to [facility]. Will follow PT eval. Pt states no further concerns/needs. CM to follow. Advised pt to ask CM if any further question/concerns/needs arise, voices understanding. Pt Goal: TBD Plan: TBD pending PT eval
--- NOTE | 2023-04-19 10:25 | CASEMGMT ---
Discharge Planning SNF list created and sent to SW. Kathy Serrato
[2023-04-19] MEDS: diazePAM 5 MG Tablet 10 MG PO (10:57)
[2023-04-19] MEDS: ARIPiprazole 2 MG Tablet PO (10:59)
--- NOTE | 2023-04-19 13:06 | CASEMGMT ---
Sw met with patient and . Sw introduced self and explained sw role during admission. Therapy recommending SNF until patient's future scheduled surgery. Sw provided patient with a list of SNF providers including quality and resource use data and consistent with the patient's preferred geographical region, medical needs and insurance network from the [facility]. Patient reviewed list and indicated her [facility] SN[facility] choice is [facility]. Sw submitted referral to [facility] and waiting acceptance. Sw received reply from [facility] that they are willing to accept patient when medically ready for discharge. Roman Simon, TELEPHONE BETTING CLERK, CORPORATE COMMUNICATIONS ASSOCIATE
[2023-04-19 13:58] VITALS: BP 100/53; PULSE 73; RESP 18; TEMP 36.5; O2SAT 95
--- NOTE | 2023-04-19 15:19 | CM.UR ---
Neelam met with patient and informed her that [facility] has accepted for SN. Sw started 7000 in [facility]. [facility] waiting on PT note in order to start pre-cert. Updated PT. Roman Simon, STRUCTURAL STEEL ERECTION SUPERVISOR, ADVANCED MANUFACTURING ENGINEER
[2023-04-19 16:40] LABS: Bedside Glucose 91 mg/dL (74-106)
--- NOTE | 2023-04-19 18:25 | PCM.PN.HOSP ---
Reason for Visit Reason for Visit: Diagnoses Displaced trimalleolar fracture of unspecified lower leg, initial encounter for closed fracture (04/18/23) Subjective Subjective And examined today, physical therapy worked with the patient but she was unsteady and a request was put in to the patient's insurance carrier for permission for the patient to go to a skilled facility for short-term rehab services. I talked extensively with orthopedic surgery today, they stated they would not do any surgery on the patient's ankle fracture until the swelling goes down in approximately a week. I relayed this to the patient and explained it to her. Objective Data Objective Data Vital Signs: Vital Signs Temp Pulse Resp BP Pulse Ox O2 Del Method 97.7 F L 73 18 100/53 L 95 Room Air 04/19/23 13:58 04/19/23 13:58 04/19/23 13:58 04/19/23 13:58 04/19/23 13:58 04/19/23 13:58 Oxygen Delivery Method Room Air Weight: 78.5 kg Body Mass Index (BMI) 30.7 Intake & Output: Intake and Output for Last 24 Hours 04/17/23 04/18/23 04/19/23 23:59 23:59 23:59 Intake Total 2175 / 2175 Balance 2175 / 2175 Lab / Micro Data Result Diagrams: 04/19/23 05:19 04/19/23 05:19 Labs: Laboratory Results - last 24 hr 04/18/23 20:00: WBC 13.7 H, RBC 3.93 L, Hgb 11.5 L, Hct 36.9 L, MCV 93.9, MCH 29.3, MCHC 31.2 L, RDW Std Deviation 45.8 H, RDW Coeff of Kristi 13.2, Plt Count 359, MPV 11.1, Immature Gran % (Auto) 0.400, Neut % (Auto) 74.7 H, Lymph % (Auto) 16.7 L, Brooke % (Auto) 6.4, Eos % (Auto) 1.2, Baso % (Auto) 0.6, Absolute Neuts (auto) 10.2 H, Absolute Lymphs (auto) 2.28, Nucleated RBC % 0 04/18/23 20:00: PT 13.0, INR 1.0, APTT 27.9 04/18/23 20:00: Sodium 141, Potassium 3.7, Chloride 103, Carbon Dioxide 31.0, Anion Gap 7, BUN 12, Creatinine 0.98, Estim Creat Clear Calc 51.76, Est GFR (MDRD) Af Amer 75, Est GFR (MDRD) Non-Af 62, BUN/Creatinine Ratio 12.3, Glucose 106, Calcium 9.3 04/18/23 20:00: Blood Type A POSITIVE, Antibody Screen NEGATIVE 04/18/23 20:00: Hemoglobin A1c 6.1 H 04/18/23 20:00: Phosphorus 3.9, Magnesium 1.8 04/18/23 22:12: POC Glucose 90 04/19/23 05:19: WBC 10.5, RBC 3.71 L, Hgb 10.7 L, Hct 35.8 L, MCV 96.5, MCH 28.8, MCHC 29.9 L, RDW Std Deviation 47.7 H, RDW Coeff of Kristi 13.5, Plt Count 333, MPV 11.2, Immature Gran % (Auto) 0.200, Neut % (Auto) 58.2, Lymph % (Auto) 31.6, Brooke % (Auto) 7.7, Eos % (Auto) 1.7, Baso % (Auto) 0.6, Absolute Neuts (auto) 6.1, Absolute Lymphs (auto) 3.32, Nucleated RBC % 0 04/19/23 05:19: Sodium 141, Potassium 3.8, Chloride 107, Carbon Dioxide 30.0, Anion Gap 4 L, BUN 12, Creatinine 0.79, Estim Creat Clear Calc 64.21, Est GFR (MDRD) Af Amer 96, Est GFR (MDRD) Non-Af 79, BUN/Creatinine Ratio 15.2, Glucose 112 H, Calcium 8.5, Total Bilirubin 0.40, AST 74 H, ALT 52, Alkaline Phosphatase 105, Total Protein 6.9, Albumin 2.8 L, Globulin 4.1, Albumin/Globulin Ratio 0.7 L 04/19/23 05:19: Hemoglobin A1c 6.2 H 04/19/23 06:26: POC Glucose 83 04/19/23 16:22: POC Glucose 91 Radiography Diagnostic Testing: Radiology Impression Ankle X-Ray 04/18/23 18:20 IMPRESSION: Fracture dislocation of the right ankle. Electronically Signed: Trino Salazar DO at 18:41 EDT , Tibia/Fibula X-Ray 04/18/23 18:20 IMPRESSION: 1. Fracture dislocation of the ankle. 2. Minimally displaced fracture of the proximal fibular shaft. Electronically Signed: Trino Salazar DO at 18:42 EDT , Ankle X-Ray 04/18/23 19:20 IMPRESSION: Successful reduction of the right ankle fracture/dislocation with semiopaque ligament. Electronically Signed: Trino Salazar DO at 19:49 EDT Reading Location ID and State: [id number] / [place] Tel [phone], Service support , Lower Extremity CT 04/18/23 19:58 IMPRESSION: Trimalleolar fracture in grossly satisfactory alignment. There is no evidence of ankle dislocation. Electronically Signed: Trino Salazar DO at 21:13 EDT Reading Location ID and State: [facility] / [place] Tel [phone], Service support , Physical Exam Const alert, oriented x3, no apparent distress, average body habitus and healthy appearing General Appearance: cooperative, well kempt and well developed Orientation / Consciousness: awake, oriented to person, oriented to place and oriented to time HEENT normocephalic, head/scalp atraumatic and moist oral mucous membranes Eyes PERRL, EOMs intact bilaterally and conjunctivae normal Neck supple, no JVD, thyroid normal and no carotid bruits General: trachea midline Resp normal respiratory effort, no retractions, no use of accessory muscles and clear to auscultation bilaterally Auscultation: Negative for rales, rhonchi or wheezes Cardio regular rate, regular rhythm, S1 normal heart sound, S2 normal heart sound, no murmurs, no rub and no gallops GI normal to inspection, nondistended, normoactive bowel sounds, soft to palpation, non-tender and non-distended Extremity normal to inspection Extremity Narrative: There is a splint over the patient's right lower extremity, patient's toes are warm to the touch on the right, right toes are not cyanotic Skin no rashes or lesions noted General Skin Exam: no breakdown Neuro oriented x3, CN's II-XII intact bilaterally, no focal motor deficits and no sensory deficits noted Sensorium / Orientation: awake, alert, oriented to person, oriented to place and oriented to time Speech: speech normal Psych affect normal Assessment & Plan Assessment/Plan (1) Trimalleolar fracture of ankle, closed: PLAN: Plan 1. Trimalleolar fracture of the right ankle-patient will not be able to undergo surgery until next week, PT and OT will see the patient, patient may have to go to a intermediate facility for short-term placement due to her injury #2 chronic depression-patient will remain on her present medications #3 hypertension-patient's remain on atenolol and furosemide #4 type 2 diabetes-patient's blood sugars will be monitored, sliding scale insulin will be given as necessary Total clinical time spent by myself addressing the patient's medical issues, reviewing all of her data, and collaborating with patient's care team: 35 minutes Charges/Coding Visit Charges Inpatient E&M: 90232 Subs Hosp L2
[2023-04-19 21:25] VITALS: BP 100/53; PULSE 82; RESP 16; TEMP 36.6; O2SAT 98
[2023-04-19] MEDS: Gabapentin 300 MG Capsule PO (21:26)
[2023-04-19] MEDS: Citalopram 20 MG Tablet PO (21:27)
[2023-04-19 23:25] LABS: Bedside Glucose 122 mg/dL (74-106)
[2023-04-20 06:18] VITALS: BP 104/42; PULSE 82; RESP 16; TEMP 36.6; O2SAT 98
[2023-04-20] MEDS: Acetaminophen 325 MG Tablet 650 MG PO ×3 (06:21→18:35)
[2023-04-20] MEDS: oxyCODONE 5 MG Tablet PO ×4 (06:21→18:35)
[2023-04-20 06:45] LABS: Bedside Glucose 115 mg/dL (74-106)
--- NOTE | 2023-04-20 08:02 | CASEMGMT ---
Discharge Planning Updated notes sent to [facility] [place] via [facility]. Precert to be started this morning. Kathy Serrato
[2023-04-20 08:03] VITALS: BP 100/44; PULSE 73; RESP 18; TEMP 36.7; O2SAT 96
[2023-04-20] MEDS: Furosemide 20 MG Tablet PO (08:05)
[2023-04-20] MEDS: Atenolol 50 MG Tablet PO (08:05)
[2023-04-20] MEDS: Potassium Chloride Oral Tablet 20 MEQ PO (08:06)
[2023-04-20] MEDS: ARIPiprazole 2 MG Tablet PO (08:06)
[2023-04-20] MEDS: Fluticasone 0.05% 1 SPRAY NASAL.SRY NASAL (08:06)
[2023-04-20] MEDS: Venlafaxine XR 150 MG Capsule PO (08:06)
[2023-04-20] MEDS: diazePAM 5 MG Tablet 10 MG PO (08:07)
[2023-04-20 09:32] VITALS: O2SAT 94
[2023-04-20 10:10] VITALS: O2SAT 97
[2023-04-20] MEDS: Enoxaparin 40 MG/0.4 ML Syringe SC (11:15)
[2023-04-20] MEDS: Insulin Lispro 100 UNIT/ML INSULN.PEN SC (11:17)
[2023-04-20 11:41] LABS: Bedside Glucose 161 mg/dL (74-106)
--- NOTE | 2023-04-20 13:11 | CASEMGMT ---
Discharge Planning Today's therapy notes [facility] to [facility]. Kathy Serrato
--- NOTE | 2023-04-20 13:37 | CASEMGMT ---
Discharge Orders [facility] has obtained auth. SW notified. Kathy Serrato
[2023-04-20 14:08] VITALS: BP 111/58; PULSE 82; RESP 18; TEMP 36.4; O2SAT 95
--- NOTE | 2023-04-20 14:16 | DCINST_ITS ---
Discharge Instructions Diet Discharge Diet: No restrictions Activity Discharge Activity: - (No weightbearing right lower extremity) Weight Bearing Status: - (No weightbearing right lower extremity) Dressing / Incision Call your doctor if your incision/area has: Increased Pain/ Swelling and - (Notify physician of any change in warmth of the patient's right toes or change in color) Follow Up Care Test Results: Test results from this visit will be discussed in further detail at your follow- up appointment, if applicable. Discharge Plan Admission Admit Date/Time: 04/18/23 20:45 Primary Reason for Your Visit: Trimalleolar fracture of the right ankle Attending Provider: Chris Workman Primary Care Provider: Jm Johansen Consulting Providers: Odalys Page Discharge Orders/Prescriptions Prescriptions: New acetaminophen 325 mg Tablet 650 mg PO Q4H PRN PRN (Reason: Fever, pain 1-10/10) Qty: 0 0RF diazepam 5 mg Tablet 10 mg PO DAILY Qty: 5 0RF melatonin 3 mg Tablet 3 mg PO QHS PRN PRN (Reason: Insomnia) Qty: 0 0RF enoxaparin 40 mg/0.4 mL Syringe 40 mg subcut DAILY Qty: 0 0RF oxycodone 5 mg Tablet 5 - 10 mg PO Q4H PRN PRN (Reason: Pain Score 4-10) 2 Days Qty: 15 0RF sennosides-docusate sodium [Stool Softener-Stimulant Laxat] 8.6-50 mg Tablet 2 tab PO BID PRN PRN (Reason: Constipation) Qty: 0 0RF Continued venlafaxine 150 MG capsule 225 mg PO DAILY potassium chloride [Klor-Con M20] 20 MEQ tablet 20 meq PO BID ergocalciferol (vitamin D2) [Vitamin D2] 50,000 UNIT capsule 50,000 unit PO SA atenolol 50 MG tablet 50 mg PO DAILY fluticasone propionate 1 SPRAY spray,suspension 1 spray NASAL BID Qty: 1 0RF metformin 500 mg tablet 500 mg PO BID Label Comments: TAKE 1 TABLET BY MOUTH DAILY WITH BREAKFAST FOR 14 DAYS, THEN 1 TABLET TWICE DAILY WITH MEALS. furosemide 20 mg tablet 20 mg PO BID Label Comments: TAKE 1 TABLET BY MOUTH TWICE DAILY. FOR LEG EDEMA aripiprazole 2 mg tablet 2 mg PO DAILY citalopram 20 mg tablet 20 mg PO QHS Label Comments: TAKE 1 TABLET BY MOUTH DAILY AT BEDTIME. FOR MOOD gabapentin 300 mg capsule 300 mg PO QHS Label Comments: TAKE 1-2 CAPSULES BY MOUTH DAILY WITH DINNER FOR 90 DAYS. Discontinued diazepam 10 mg tablet 10 mg PO DAILY Label Comments: TAKE 1 TABLET BY MOUTH ONCE DAILY NEEDED FOR ANXIETY FOR UP TO 30 DAYS. Referrals / Follow Up: Jm Johansen DO [Primary Care Provider] -
--- NOTE | 2023-04-20 14:30 | PCM.TXEXTCAR ---
Diet Diet Order/Speech Therapy: 04/19/23 09:08 Diet: 1800 ADA Is pt able to select menu?: Yes Routine Orders/Code Status Routine Lab Work: - (Fingerstick blood sugars fasting and 4 PM daily, notify attending if blood sugar over 160) Code Status: Full Code Therapies Weight Bearing: Non weight bearing (Right lower extremity) Extremity Affected:: Right Lower Physical Therapy: Eval and Treat Occupational Therapy: Eval and Treat Problem/Diagnosis (1) Trimalleolar fracture of ankle, closed: Status: Acute Code(s): S82.853A - Displaced trimalleolar fracture of unspecified lower leg, initial encounter for closed fracture Plan 1. Trimalleolar fracture of the right ankle-patient will not be able to undergo surgery until next week, PT and OT will see the patient, patient may have to go to a intermediate facility for short-term placement due to her injury #2 chronic depression-patient will remain on her present medications #3 hypertension-patient's remain on atenolol and furosemide #4 type 2 diabetes-patient's blood sugars will be monitored, sliding scale insulin will be given as necessary Total clinical time spent by myself addressing the patient's medical issues, reviewing all of her data, and collaborating with patient's care team: 35 minutes Allergies/Procedures Done in Hospital Allergies Sulfa (Sulfonamide Antibiotics) Allergy (Verified 04/18/23 17:55) Unknown Procedures: None Type of Care/Length of Stay Estimated LOS: Convalescent Care Less Than 30 days Type of Care Needed: Skilled Rehab Potential: Good Prognosis: Good Additional Orders/Day of Discharge H&P will serve as current which was dated: 04/18/23 Day of Discharge: 04/20/23 Discharge Plan Admission Admit Date/Time: 04/18/23 20:45 Primary Reason for Your Visit: Trimalleolar fracture of the right ankle Attending Provider: Chris Workman Primary Care Provider: Jm Johansen Consulting Providers: Odalys Page Discharge Orders/Prescriptions Prescriptions: New acetaminophen 325 mg Tablet 650 mg PO Q4H PRN PRN (Reason: Fever, pain 1-10/10) Qty: 0 0RF diazepam 5 mg Tablet 10 mg PO DAILY Qty: 5 0RF melatonin 3 mg Tablet 3 mg PO QHS PRN PRN (Reason: Insomnia) Qty: 0 0RF enoxaparin 40 mg/0.4 mL Syringe 40 mg subcut DAILY Qty: 0 0RF oxycodone 5 mg Tablet 5 - 10 mg PO Q4H PRN PRN (Reason: Pain Score 4-10) 2 Days Qty: 15 0RF sennosides-docusate sodium [Stool Softener-Stimulant Laxat] 8.6-50 mg Tablet 2 tab PO BID PRN PRN (Reason: Constipation) Qty: 0 0RF Continued venlafaxine 150 MG capsule 225 mg PO DAILY potassium chloride [Klor-Con M20] 20 MEQ tablet 20 meq PO BID ergocalciferol (vitamin D2) [Vitamin D2] 50,000 UNIT capsule 50,000 unit PO SA atenolol 50 MG tablet 50 mg PO DAILY fluticasone propionate 1 SPRAY spray,suspension 1 spray NASAL BID Qty: 1 0RF metformin 500 mg tablet 500 mg PO BID Label Comments: TAKE 1 TABLET BY MOUTH DAILY WITH BREAKFAST FOR 14 DAYS, THEN 1 TABLET TWICE DAILY WITH MEALS. furosemide 20 mg tablet 20 mg PO BID Label Comments: TAKE 1 TABLET BY MOUTH TWICE DAILY. FOR LEG EDEMA aripiprazole 2 mg tablet 2 mg PO DAILY citalopram 20 mg tablet 20 mg PO QHS Label Comments: TAKE 1 TABLET BY MOUTH DAILY AT BEDTIME. FOR MOOD gabapentin 300 mg capsule 300 mg PO QHS Label Comments: TAKE 1-2 CAPSULES BY MOUTH DAILY WITH DINNER FOR 90 DAYS. Discontinued diazepam 10 mg tablet 10 mg PO DAILY Label Comments: TAKE 1 TABLET BY MOUTH ONCE DAILY NEEDED FOR ANXIETY FOR UP TO 30 DAYS. Referrals / Follow Up: Jm Johansen DO [Primary Care Provider] - Samson Gibson DO [Med Staff - Active Staff] - See Referral Note (Patient has appointment at Dr. Gibson's office on 04/23/2023 at 8:45 AM, please have the patient arrived at the office no later than 8:15 AM) Disposition Disposition (needs filled in before D/C Order can be placed): [facility]
--- NOTE | 2023-04-20 14:37 | DS.PCM_ITS ---
Providers Date of Admission: 04/18/23 Date of Discharge: 04/20/23 Primary Care Physician: Dr. Jm Johansen DO Reason For Visit: R ANKLE FRACTURE Diagnosis Discharge Diagnosis (1) Trimalleolar fracture of ankle, closed: Status: Acute Code(s): S82.853A - Displaced trimalleolar fracture of unspecified lower leg, initial encounter for closed fracture Plan 1. Trimalleolar fracture of the right ankle-patient will not be able to undergo surgery until next week, PT and OT will see the patient, patient [place] have [place] go [place] a [place] for short-term placement due to her injury #2 chronic depression-patient will remain on her present medications #3 hypertension-patient's remain on atenolol and furosemide #4 type 2 diabetes-patient's blood sugars will be monitored, sliding scale insu khloe will be given as necessary Total clinical time spent by myself addressing the patient's medical issues, reviewing all of her data, and collaborating with patient's care team: 35 minutes Medications at Discharge Home Medications atenolol 50 mg tablet 50 mg PO DAILY blood pressure 12/20/15 ergocalciferol (vitamin D2) 1,250 mcg (50,000 unit) capsule (Vitamin D2) 50,000 unit PO SA supplement 12/20/15 potassium chloride 20 mEq tablet,extended release(part/cryst) (Klor-Con M) 20 meq PO BID supplement 12/20/15 venlafaxine 150 mg capsule,extended release 24 hr 225 mg PO DAILY depression 12/20/15 fluticasone propionate 50 mcg/actuation nasal spray,suspension 1 spray BID ##1 06/24/18 aripiprazole 2 mg tablet 2 mg PO DAILY mood 04/18/23 citalopram 20 mg tablet 20 mg PO QHS depression 04/18/23 furosemide 20 mg tablet 20 mg PO BID diuretic 04/18/23 gabapentin 300 mg capsule 300 mg PO QHS arthritis 04/18/23 metformin 500 mg tablet 500 mg PO BID diabetes 04/18/23 acetaminophen 325 mg tablet 650 mg PO Q4H PRN PRN Fever, pain 1-09/07 #0 tabs 04/20/23 diazepam 5 mg tablet 10 mg PO DAILY #5 tabs 04/20/23 enoxaparin 40 mg/0.4 mL subcutaneous syringe 40 mg (0.4 mL) subcut DAILY #0 mL 04/20/23 melatonin 3 mg tablet 3 mg PO QHS PRN PRN Insomnia #0 tabs 04/20/23 oxycodone 5 mg tablet 5 - 10 mg PO Q4H PRN PRN Pain Score 4-10 2 days #15 tabs 04/20/23 sennosides 8.6 mg-docusate sodium 50 mg tablet (Stool Softener-Stimulant Laxative) 2 tab PO BID PRN PRN Constipation #0 tabs 04/20/23 Hospital Course Operations None Procedures None Summary of Care Provided Minutes Spent on Discharge: 32 Hospital Course: This 57-year-old white female was seen in the emergency room at [facility] with complaints of right ankle pain and inability to walk on her ankle after she jumped off a pickup truck bed to the ground. X-rays were obtained in the emergency room which showed a trimalleolar fracture and a dislocation of the right ankle. Patient was placed in a stabilizing splint plant after the ankle was reduced, the images were reviewed by orthopedic surgery (Dr. Gibson) and he stated that the patient would need to wait for approximately a week until the swelling resolves in order to have surgery on the ankle. It was not necessary for orthopedic surgery to see the patient in the hospital as there was no immediate surgery planned. Patient was admitted to [place] [address], she was seen by PT and OT, she was given narcotics for pain control. It was felt that the patient would benefit from short-term placement in a [place] facility due to her pain and debility from the right ankle fracture. Her [place] approved admission to a [place]. On 04/20/2023, patient was seen and examined: On examination she appeared in good health and spirits, she does not appear to be in any distress. Vital signs as documented. Skin warm and dry and without overt rashes. Neck without JVD, thyroid appears normal, trachea is midline, neck is supple. Lungs clear, normal air movement was noted. Heart exam notable for regular rhythm, normal sounds and absence of murmurs, rubs or gallops. Abdomen unremarkable and without evidence of organomegaly, masses, or abdominal aortic enlargement, bowel sounds are present in all 4 quadrants, no abdominal tenderness was noted. Extremities-right lower extremity had a splint in place, right toes appeared warm and nonedematous, no cyanosis was noted, no clubbing was noted. Neuro: Cranial nerv es II through XII are grossly intact, no focal motor deficits were noted, sensation to light touch and pinprick is intact, motor exam 5/5 throughout. Psych: Patient is alert and oriented x3, she does not appear anxious or depressed, she does not appear agitated. Patient was transferred to the [facility] for short-term rehab services on 04/20/2023. As a final note, I called Dr. Gibson's office and arrange for an appointment for the patient on 04/23/2023 at 8:45 AM, I went over this with the patient and added it to the patient's residential transfer paperwork. Weight / BMI Weight Weight: 78.5 kg Body Mass Index (BMI) 30.7 ABG / Lab / Microbiology Data Result Diagrams: 04/19/23 05:19 04/19/23 05:19 Laboratory: Laboratory Results - last 24 hr 04/19/23 16:22: POC Glucose 91 04/19/23 22:28: POC Glucose 122 H 04/20/23 06:21: POC Glucose 115 H 04/20/23 11:14: POC Glucose 161 H Meaningful Use Info Meaningful Use Diagnoses (Choose all that apply): None applicable Discharge Plan Admission Admit Date/Time: 04/18/23 20:45 Primary Reason for Your Visit: Trimalleolar fracture of the right ankle Attending Provider: Chris Workman Primary Care Provider: Jm Johansen Consulting Providers: Odalys Page Discharge Orders/Prescriptions Prescriptions: New acetaminophen 325 mg Tablet 650 mg PO Q4H PRN PRN (Reason: Fever, pain 1-10/10) Qty: 0 0RF diazepam 5 mg Tablet 10 mg PO DAILY Qty: 5 0RF melatonin 3 mg Tablet 3 mg PO QHS PRN PRN (Reason: Insomnia) Qty: 0 0RF enoxaparin 40 mg/0.4 mL Syringe 40 mg subcut DAILY Qty: 0 0RF oxycodone 5 mg Tablet 5 - 10 mg PO Q4H PRN PRN (Reason: Pain Score 4-10) 2 Days Qty: 15 0RF sennosides-docusate sodium [Stool Softener-Stimulant Laxat] 8.6-50 mg Tablet 2 tab PO BID PRN PRN (Reason: Constipation) Qty: 0 0RF Continued venlafaxine 150 MG capsule 225 mg PO DAILY potassium chloride [Klor-Con M20] 20 MEQ tablet 20 meq PO BID ergocalciferol (vitamin D2) [Vitamin D2] 50,000 UNIT capsule 50,000 unit PO SA atenolol 50 MG tablet 50 mg PO DAILY fluticasone propionate 1 SPRAY spray,suspension 1 spray NASAL BID Qty: 1 0RF metformin 500 mg tablet 500 mg PO BID Label Comments: TAKE 1 TABLET BY MOUTH DAILY WITH BREAKFAST FOR 14 DAYS, THEN 1 TABLET TWICE DAILY WITH MEALS. furosemide 20 mg tablet 20 mg PO BID Label Comments: TAKE 1 TABLET BY MOUTH TWICE DAILY. FOR LEG EDEMA aripiprazole 2 mg tablet 2 mg PO DAILY citalopram 20 mg tablet 20 mg PO QHS Label Comments: TAKE 1 TABLET BY MOUTH DAILY AT BEDTIME. FOR MOOD gabapentin 300 mg capsule 300 mg PO QHS Label Comments: TAKE 1-2 CAPSULES BY MOUTH DAILY WITH DINNER FOR 90 DAYS. Discontinued diazepam 10 mg tablet 10 mg PO DAILY Label Comments: TAKE 1 TABLET BY MOUTH ONCE DAILY NEEDED FOR ANXIETY FOR UP TO 30 DAYS. Referrals / Follow Up: Jm Johansen DO [Primary Care Provider] - Samson Gibson DO [Med Staff - Active Staff] - See Referral Note (Patient has appointment at Dr. Gibson's office on 04/23/2023 at 8:45 AM, please have the patient arrived at the office no later than 8:15 AM) Disposition Disposition (needs filled in before D/C Order can be placed): [facility] Charges/Coding Visit Charges Inpatient E&M: 29492 Disch Hosp >30min
--- NOTE | 2023-04-20 15:34 | PHA.DC.MR ---
Pharmacy Service has performed discharge medication reconciliation for this patient. The patient's discharge medication list was reviewed for discrepancies and discrepancies were resolved. Home Medications atenolol 50 mg tablet 50 mg PO DAILY blood pressure 12/20/15 ergocalciferol (vitamin D2) 1,250 mcg (50,000 unit) capsule (Vitamin D2) 50,000 unit PO SA supplement 12/20/15 potassium chloride 20 mEq tablet,extended release(part/cryst) (Klor-Con M) 20 meq PO BID supplement 12/20/15 venlafaxine 150 mg capsule,extended release 24 hr 225 mg PO DAILY depression 12/20/15 fluticasone propionate 50 mcg/actuation nasal spray,suspension 1 spray BID ##1 06/24/18 aripiprazole 2 mg tablet 2 mg PO DAILY mood 04/18/23 citalopram 20 mg tablet 20 mg PO QHS depression 04/18/23 furosemide 20 mg tablet 20 mg PO BID diuretic 04/18/23 gabapentin 300 mg capsule 300 mg PO QHS arthritis 04/18/23 metformin 500 mg tablet 500 mg PO BID diabetes 04/18/23 acetaminophen 325 mg tablet 650 mg PO Q4H PRN PRN Fever, pain 1-09/07 #0 tabs 04/20/23 diazepam 5 mg tablet 10 mg PO DAILY #5 tabs 04/20/23 enoxaparin 40 mg/0.4 mL subcutaneous syringe 40 mg (0.4 mL) subcut DAILY #0 mL 04/20/23 melatonin 3 mg tablet 3 mg PO QHS PRN PRN Insomnia #0 tabs 04/20/23 oxycodone 5 mg tablet 5 - 10 mg PO Q4H PRN PRN Pain Score 4-10 2 days #15 tabs 04/20/23 sennosides 8.6 mg-docusate sodium 50 mg tablet (Stool Softener-Stimulant Laxative) 2 tab PO BID PRN PRN Constipation #0 tabs 04/20/23
--- NOTE | 2023-04-20 16:07 | CASEMGMT ---
[facility] approved and received for patient to be transferred to [facility]. Patient medically ready for discharge today. Discharge orders, medication list, 7000, and transfer summary sent to [facility]. Patient and spouse updated and informed that transfer would be scheduled for today. Patient and spouse discussed transport, and understand financial responsibility should they chose to use [facility] for [facility].
--- NOTE | 2023-04-20 16:32 | CASEMGMT ---
Social Work Pt requesting transport via [facility]. Transportation arranged with a 7:00 lease picker. Pt notified and will update her spouse. [facility] updated on discharge time. Disposition: [facility], skilled level of care under convalescent stay CARLOS ALBERTO Ma
[2023-04-20 20:07] VITALS: BP 118/63; PULSE 81; RESP 16; TEMP 36.6; O2SAT 98
--- NOTE | 2023-04-20 20:16 | NURSING ---
report called to Ness [facility] from [facility]. made aware pt was just picked up by ambulance.
== END 2023-04-20 20:15 | disposition skilled nursing facility (03) | DRG 563 ==
LOC: ED 20:16 → MS3 20:54
PROVIDERS: Nurse Practitioner; Admitting Provider Family Medicine; Emergency Provider Emergency Medicine; PCP Student in an Organized Health Care Education/Training Program; Visit Provider Internal Medicine
DX: S82.851A Displaced trimalleolar fracture of right lower leg, initial encounter for closed fracture (principal); E11.40 Type 2 diabetes mellitus with diabetic neuropathy, unspecified; J30.9 Allergic rhinitis, unspecified; S82.401A Unspecified fracture of shaft of right fibula, initial encounter for closed fracture; E78.5 Hyperlipidemia, unspecified; I10 Essential (primary) hypertension; F41.9 Anxiety disorder, unspecified; W17.89XA Other fall from one level to another, initial encounter; F43.10 Post-traumatic stress disorder, unspecified; Z87.891 Personal history of nicotine dependence; Z79.84 Long term (current) use of oral hypoglycemic drugs; F32.A Depression, unspecified; E66.9 Obesity, unspecified; Z68.30 Body mass index [BMI] 30.0-30.9, adult
CPT/HCPCS: 36415; 73590; 73600; 73610; 73700; 80048; 80053; 82962; 83036; 83735; 84100; 85025; 85610; 85730; 86850; 86900; 86901; 87426; 94668; 97110; 97116; 97162; 97166; 97530; 97535; 99285; J7030; A4216; J2405

== ENCOUNTER 2023-04-29 10:45 | Day surgery (SDC) | payer OTHER, SELFPAY ==
[2023-04-29] VITALS (8 sets, daily range): BP systolic 117–135; BP diastolic 57–79; PULSE 84–94; RESP 16–18; TEMP 36.2–37.1; O2SAT 95–100; BMI 30.2
[2023-04-29] MEDS: Lactated Ringers 1,000 ML 15 ML IV (11:27)
[2023-04-29 12:19] LABS: Bedside Glucose 107 mg/dL (74-106)
--- NOTE | 2023-04-29 14:40 | RAD_ITS ---
STUDY: X-RAY - RIGHT ANKLE REASON FOR EXAM: Female, 57 years old. Fracture. TECHNIQUE: 9 intraoperative view(s) of the ankle. COMPARISON: Ankle, April 18, 2023 FINDINGS: 9 intraoperative images demonstrate a plate and screws along the posterior aspect of the distal tibia with plate and screws is also seen along the lateral aspect of the distal fibula. The fractures are in normal alignment. Ankle joint is preserved. Please refer to the operative report for further details. RAD/Ankle 2 Views IMPRESSION: Internal fixation of a left ankle fracture in the OR. Electronically Signed: Trino Salazar DO at 19:30 EDT ,
[2023-04-29] MEDS: Cefazolin 2 GM in 0.9% Normal Saline 100 ML IV (15:05)
--- NOTE | 2023-04-29 16:52 | DCINST_ITS ---
Discharge Instructions Follow Up Care Test Results: Test results from this visit will be discussed in further detail at your follow- up appointment, if applicable. Discharge Plan Admission Attending Provider: Samson Gibson Primary Care Provider: Jm Johansen Instructions Additional Instructions / Restrictions: Follow preprinted instructions from your surgeons office. Restart Lovenox 04/30/2023. Discharge Orders/Prescriptions Prescriptions: New oxycodone 5 mg tablet 10 mg PO Q6H PRN (Reason: pain) 5 Days Qty: 40 0RF Continued enoxaparin 40 mg/0.4 mL Syringe 40 mg subcut DAILY 14 Days Qty: 0 0RF Held oxycodone 5 mg tablet 5 mg PO Q6H PRN PRN (Reason: Pain) Hold Instructions: Resume on 05/03/23. No Action venlafaxine 150 MG capsule 225 mg PO DAILY potassium chloride [Klor-Con M20] 20 MEQ tablet 20 meq PO BID ergocalciferol (vitamin D2) [Vitamin D2] 50,000 UNIT capsule 50,000 unit PO SA atenolol 50 MG tablet 50 mg PO DAILY fluticasone propionate 1 SPRAY spray,suspension 1 spray NASAL BID Qty: 1 0RF metformin 500 mg tablet 500 mg PO BID Label Comments: TAKE 1 TABLET BY MOUTH DAILY WITH BREAKFAST FOR 14 DAYS, THEN 1 TABLET TWICE DAILY WITH MEALS. furosemide 20 mg tablet 20 mg PO BID Label Comments: TAKE 1 TABLET BY MOUTH TWICE DAILY. FOR LEG EDEMA aripiprazole 2 mg tablet 2 mg PO DAILY citalopram 20 mg tablet 20 mg PO QHS Label Comments: TAKE 1 TABLET BY MOUTH DAILY AT BEDTIME. FOR MOOD gabapentin 300 mg capsule 300 mg PO QHS Label Comments: TAKE 1-2 CAPSULES BY MOUTH DAILY WITH DINNER FOR 90 DAYS. acetaminophen 325 mg Tablet 650 mg PO Q4H PRN PRN (Reason: Fever, pain 1-09/07) Qty: 0 0RF lamotrigine [Lamictal] 150 mg Tablet 150 mg PO DAILY rosuvastatin [Crestor] 20 mg Tablet 20 mg PO QHS diazepam 5 mg tablet 10 mg PO DAILY PRN (Reason: Anxiety) Referrals / Follow Up: Jm Johansen, DO [Primary Care Provider] - Disposition Disposition (needs filled in before D/C Order can be placed): Home, Self Care
--- NOTE | 2023-04-29 16:55 | OP.PCM_ITS ---
Report of Operation Date of Procedure: 04/29/23 Description of Surgical Findings:: Preoperative diagnosis: Right ankle trimalleolar fracture dislocation Postoperative diagnosis: Right ankle trimalleolar fracture dislocation Procedure: Right ankle open reduction internal fixation posterior and lateral malleolus Surgeon: Samson Gibson DO Press Clipper: Radha Shipley PA-C Anesthesia: General endotracheal with popliteal and adductor canal blocks Anesthesiologist: Dr. Romo Complications: None apparent Drains: None Estimated blood loss: 30 cc Urinary output: None recorded IV fluids: 1400 cc crystalloid Specimens: None Surgical implants: Arthrex 7 hole titanium third tubular plate, Arthrex 4 hole titanium third tubular plate Surgical indications: This is a 57-year-old female who sustained an injury about her right ankle when she jumped down from a tailgate on 04/18/2023. Fracture dislocation of the right ankle was sustained and subsequently reduced and [facility] emergency department on 04/18/2023. Patient was admitted for placement due to inability to go home safely. Patient followed up with me in the office for surgical recommendations and for a skin check. I recommended surgical intervention in the form of right ankle open reduction internal fixation. CT sc an was obtained and reviewed. There was a large posterior malleolus fracture which necessitated fixation. Pattern appears consistent with a hyper plantarflexion variant with Maisonneuve component. We discussed the risks, benefits, alternatives the procedure. The risks include but are not limited to bleeding, infection, loss of life or limb, risk of anesthesia, risk of nerve block, persistent pain, nonunion, malunion, posttraumatic arthritis, instability, need for additional surgery, failure of orthopedic hardware, persistent limp or need for assistive device. Patient expressed understanding of these risks and wished to proceed. Description of procedure: Patient was seen in preoperative holding area. They were identified by name, medical record number, date of . The operative extremity was marked with a surgical marker. We confirmed informed consent with the patient and all questions were answered to her satisfaction. In the preoperative holding area, a popliteal block and aductor canal was administered by the anesthesia staff. At time of the procedure, patient was brought to the operative suite and positioned supine on her gurney where general anesthesia was induced. Endotracheal tube was placed. Patient was then positioned in the prone position with all bony prominences being well-padded. A well-padded pneumatic tourniquet was applied to the right upper thigh. Splint was removed. We then prepped and draped the operative extremity using a ChloraPrep. We performed a timeout with all parties in attendance in agreement the side, site, operation be performed. 2 g Ancef was administered IV prior to the tourniquet inflation by anesthesia staff. No concerns were voiced which proceed with surgery. While stabilizing the ankle, the operative extremity was exsanguinated with an Esmarch bandage. Tourniquet was inflated to 250 mmHg were made up for approximately 1 hour. Esmarch was removed. Standard posterior lateral skin incision was made in the midpoint between the posterior border of the fibula and Achilles tendon. Longitudinal incision was carried sharply through skin. I bluntly dissected the subcutaneous plane and identified the sural nerve. Crossing vessels were cauterized. Investing fascia of the lateral compartment was encountered and opened sharply. I then retracted the peroneal muscles and tendon laterally. FHL fascia was opened. FHL was elevated sharply from the posterior tibia. Posterior malleolus fracture was encountered. Fracture hematoma was sharply debrided. I opened both the fracture site and retrieved an incarcerated fragment which was blocking closed reduction. This was excised. I then used a ball spike pusher to achieve near anatomic reduction of the posterior malleolus which was held in place with a anterior directed K wire. I then attempted to place a 3.5 mm lag screw. This had reasonable purchase however due to the osteopenia in the posterior malleolus this screw head compressed through the posterior cortex. I left this intact well I selected a 4-hole third tubular plate to act in antiglide fashion. Plate was under contoured and apex screw was placed bicortically with excellent compression across fracture site. Lag screw was then removed from the bone. I placed additional cortical screws proximal to the fracture site. A single partially- threaded 4.0 mm cancellous screw was placed in the most distal hole of the plate achieving additional compression across fracture site. Anatomic sabianist of the tibial plafond was restored. I then turned my attention to the fibula. Peroneal tendons were retracted medially. I gently elevated periosteum at the level of the fibular fracture site which was proximal to the posterior malleolus fracture. Fracture was reasonably well aligned. I used a lobster claw clamp to achieve anatomic reduction. This was held in place with a K wire. I then selected a 7 hole third tubular titanium plate tacked in antiglide fashion. This was held provisionally with K wires. I then compressed the plate to bone in standard fashion proximal to the fracture site with a bicortical 3.5 millimeter screw. The proximal plate holes were then filled bicortical cortex screws. 2 additional screws were placed distal to the fracture site. Lateral malleolus was stable following fixation. Given the coronal plane nature of the medial malleolus and anatomic alignment on fluoroscopy, elected to perform a stress examination of the medial malleolus to determine if additional fixation was required. External rotation, abduction and cotton test were all stable. I elected to not disrupt fracture hematoma at the medial malleolus as this appeared stable following posterior and lateral malleoli fixation. Wound was copiously irrigated with normal saline solution. Tourniquet was deflated. Hemostasis achieved with Bovie cautery. Dermis was reapproximated buried fashion with 2-0 Vicryl suture. Skin was reapproximated 3-0 nylon suture in interrupted horizontal mattress fashion. A sterile compression dressing was applied. Patient was then placed in a well-padded 3 sided AO type fiberglass splint in maximal dorsiflexion. She was repositioned in the supine position. She was safely extubated in the operative suite. She was transferred to PACU in stable condition. Need for skilled bilingual administrative assistant: Radha Shipley PA-C was critical to the outcome of the case. During the course of the procedure the physician bilingual administrative assistant played a vital role. Her intimate knowledge of my steps in the procedure aided in safe and expedient completion of the procedure. The PA played a vital role in positioning particularly in obtaining the appropriate positioning. The PA was also vital in the retraction of soft tissues during the exposure and protecting vital structures. The PA was also vital and obtaining fracture reduction and assisting with hardware placement. She also played a vital role in closure and splint application with my direct supervision. Post Operative Plan: Weightbearing: Nonweightbearing operative extremity Antibiotics: 2 g Ancef x 1 dose preoperatively DVT Prophylaxis: Lovenox 40 mg daily, restarted postoperative day #1 Gudino: None Dressing: Maintain splint, keep it clean dry and intact until follow-up X-Rays: 2 weeks postop in the office Pain Medication: Oxycodone Rx upon discharge Follow-up: 2 weeks post-operatively with me in the office
[2023-04-29 17:53] LABS: Bedside Glucose 131 mg/dL (74-106)
== END 2023-04-29 18:38 | disposition home or self-care (01) ==
PROVIDERS: PCP Student in an Organized Health Care Education/Training Program; Referring Provider Student in an Organized Health Care Education/Training Program; Visit Provider Student in an Organized Health Care Education/Training Program
PROC: (CPT 27822; principal; 2023-04-29 12:35)
DX: S82.851A Displaced trimalleolar fracture of right lower leg, initial encounter for closed fracture (principal); E11.9 Type 2 diabetes mellitus without complications; F41.9 Anxiety disorder, unspecified; F32.A Depression, unspecified; Z87.19 Personal history of other diseases of the digestive system; E78.5 Hyperlipidemia, unspecified; I10 Essential (primary) hypertension; F43.10 Post-traumatic stress disorder, unspecified; Z99.3 Dependence on wheelchair; Z87.891 Personal history of nicotine dependence; E66.8 Other obesity; Z68.31 Body mass index [BMI] 31.0-31.9, adult; W17.89XA Other fall from one level to another, initial encounter
CPT/HCPCS: 27822; 01480; 64450; 73600; 76000; 82962; C1713; J7120; J2405

== ENCOUNTER → 2023-12-07 | Outpatient (CLI) | payer MEDICAID, SELFPAY ==
--- NOTE | 2023-12-07 13:23 | RAD_ITS ---
INDICATION: Displaced trimalleolar fracture of right lower leg, subsequent encounter EXAMINATION/TECHNIQUE: X-RAY - RIGHT XR Ankle Min 3 Views 3 VIEWS COMPARISON: Prior study dated: 04/18/2023. FINDINGS: SOFT TISSUES: No soft tissue swelling or gas. No radiopaque foreign body. BONES/JOINTS: Side plate and screws securing previously fractured distal fibula. Side plate and screws securing fractures of the posterior distal tibia. No acute fracture is seen. Normal alignment. Preservation of the joint space.. No sclerotic or destructive changes observed. RAD/Ankle min 3 Views IMPRESSION: Status post open reduction internal fixation. Electronically Signed: Khanh Sibley MD at 13:58 EST ,
== END | disposition home or self-care (01) ==
LOC: RAD 13:21
PROVIDERS: PCP Student in an Organized Health Care Education/Training Program; Referring Provider Student in an Organized Health Care Education/Training Program; Visit Provider Student in an Organized Health Care Education/Training Program
DX: S82.851D Displaced trimalleolar fracture of right lower leg, subsequent encounter for closed fracture with routine healing (principal)
CPT/HCPCS: 73610